=== PATIENT | male | born 1955 | race Caucasian/White ===

== ENCOUNTER 2020-10-15 09:17 | Outpatient (REF) | payer OTHER, SELFPAY ==
--- NOTE | ~2020-10-15 | MR_ITS ---
EXAMINATION: MR SHOULDER WITHOUT CONTRAST, LEFT CLINICAL INFORMATION: History of RA, fall on outstretched hand. COMPARISON: None. TECHNIQUE: MRI of the shoulder without contrast is performed on a 1.5 [employer] high-field scanner. FINDINGS: ROTATOR CUFF: There is ill-defined high-grade partial tearing of the distal supraspinatus tendon without a focal full-thickness fluid signal/measurable defect. There is ill-defined undersurface partial tearing of the distal subscapularis tendon. There is a 9 mm focus of low signal intensity at the infraspinatus tendon insertion compatible with calcific tendinitis. No muscle atrophy or fatty infiltration. BICEPS: Longitudinal partial tearing of the biceps tendon which is slightly subluxed out of the bicipital groove, draped over the lesser tuberosity with underlying spurring and reactive cyst formation. CORACOACROMIAL ARCH: The undersurface of the acromion is curved with minimal subacromial spurring laterally. Moderate acromioclavicular osteoarthritis. LABRUM/CAPSULE: No definite labral tear. GLENOHUMERAL JOINT/MARROW: Osteophyte formation of the posterior superior glenoid rim. No significant joint effusion. ADDITIONAL FINDINGS: None. MR/MR shoulder LT wo con IMPRESSION: Ill-defined high-grade partial tearing of the distal supraspinatus tendon without a measurable defect. Subscapularis tendinopathy with mild ill-defined undersurface partial tearing. Longitudinal partial tearing of the biceps tendon which is medially subluxed, draped over the lesser tuberosity where there is degenerative spurring and cyst formation. Infraspinatus insertional calcific tendinitis. Moderate acromioclavicular osteoarthritis. Small lateral subacromial spur. Mild glenohumeral osteoarthritis.
== END 2020-10-15 09:18 | disposition home or self-care (01) ==
LOC: HO.MRI 09:17
PROVIDERS: Visit Provider Internal Medicine
DX: M25.512 Pain in left shoulder (principal)
CPT/HCPCS: 73221